=== PATIENT | female | born 1945 | race African-American/Black ===

== ENCOUNTER 2021-06-26 17:11 | Inpatient (IN) | payer OTHER ==
[~2021-06-26] VITALS: Ht 165.1 cm; Wt 114.0 kg
[~2021-06-26 17:11] MED LIST: ASPI-556 PO; CELE200 PO; DICY10 PO; DONE5TAB5 PO; GABA-1181 PO; HYDR25TA2 PO; INSLAN SQ; LISI-894 PO; OMEP20 PO; ONDA-104 PO; PRAV40TA4 PO; RANI150T7 PO; TRAZ-257 PO
[2021-06-26] MEDS ORDERED: IOHEXOL 350 MG/ML 100 ML VIAL ONE (17:30)
[2021-06-26] MEDS ORDERED: SODIUM CHLORIDE 0.9% 100 ML ONE (17:30)
[2021-06-26 17:44] LABS: BASOPHILS % (AUTO) 0.6 % (0.0-2.0); EOSINOPHILS % (AUTO) 6.3 % (1.0-6.0); HEMATOCRIT 39.6 % (36-46); HEMOGLOBIN 12.9 g/dL (12.0-16.0); LYMPHOCYTES # (AUTO) 2.5 K/uL (1.0-4.8); LYMPHOCYTES % (AUTO) 33.1 % (22.0-44.0); MEAN CORPUSCULAR HEMOGLOBIN 28.1 pg (26.0-34.0); MEAN CORPUSCULAR HGB CONC 32.6 G/dL (31.0-37.0); MEAN CORPUSCULAR VOLUME 86 fL (80-100); MONOCYTES # (AUTO) 0.5 K/uL (0.1-1.0); MONOCYTES % (AUTO) 7.4 % (2.0-9.0); NEUTROPHILS # (AUTO) 3.9 K/uL (1.8-7.7); NEUTROPHILS % (AUTO) 52.6 % (40.0-70.0); PLATELET COUNT (AUTO) 228 K/uL (150-450); RED CELL DISTRIBUTION WIDTH 15.8 % (11.5-14.5)
[2021-06-26 17:52] LABS: ANION GAP 5 mmol/L (8-16); CALCIUM, TOTAL 9.3 mg/dL (8.8-10.5); CARBON DIOXIDE 31 mmol/L (22-29); CHLORIDE 102 mmol/L (98-107); GLUCOSE,RANDOM 159 mg/dL (70-110); POTASSIUM 4.2 mmol/L (3.5-5.1); SODIUM SERUM 138 mmol/L (136-145); UREA NITROGEN, BLOOD 11 mg/dL (7-18)
[2021-06-26 17:56] LABS: PROTHROMBIN TIME 10.5 SEC (9.4-11.6)
[2021-06-26 17:57] LABS: ALANINE AMINOTRANSFERASE 24 U/L (12-78); ALBUMIN 3.2 g/dL (3.4-5.0); ALKALINE PHOSPHATASE 175 U/L (46-116); ASPARTATE AMINOTRANSFERASE 23 U/L (15-37); BILIRUBIN,TOTAL 0.4 mg/dL (0.1-1.0)
[2021-06-26 17:59] LABS: GLOMERULAR FILTR. RATE CALC > 60 mL/min (>60)
[2021-06-26 18:59] LABS: COVID AG,FIA SOURCE NASAL SWAB
[2021-06-26 19:08] LABS: APPEARANCE,URINE CLEAR (CLEAR); BILIRUBIN,URINE NEGATIVE (NEGATIVE); GLUCOSE, URINE (UA) NEGATIVE (NEGATIVE); KETONES,URINE NEGATIVE (NEGATIVE); LEUKOCYTE ESTERASE ,URINE NEGATIVE (NEGATIVE); NITRATE,URINE NEGATIVE (NEGATIVE); OCCULT BLOOD,URINE NEGATIVE (NEGATIVE); PH,URINE 6.5 (5.0-8.0); PROTEIN,URINE NEGATIVE (NEGATIVE); UROBILINOGEN,URINE 0.2 mg/dL (<=1.0)
[2021-06-26 19:14] LABS: AMPHET/METH SCREEN,URINE NEGATIVE (NEGATIVE); BARBITURATE SCREEN, URINE NEGATIVE (NEGATIVE); BENZODIAZEPINES SCREEN,URINE NEGATIVE (NEGATIVE); CANNABINOID SCREEN,URINE POSITIVE (NEGATIVE); COCAINE SCREEN,URINE NEGATIVE (NEGATIVE); METHADONE SCREEN, URINE NEGATIVE (NEGATIVE); OPIATE SCREEN,URINE NEGATIVE (NEGATIVE); PHENCYCLIDINE SCREEN,URINE NEGATIVE (NEGATIVE)
[2021-06-26 19:19] LABS: BACTERIA,URINE Rare /HPF (None Seen); RBC,URINE 0-2 /HPF (0-2); SQUAMOUS EPITHELIAL CELL,UR Few /LPF (None Seen); WBC,URINE 0-2 /HPF (0-5)
[2021-06-26] MEDS ORDERED: ALTEPLASE 9 MG in WATER FOR INJECTION,STERILE 9 ML IV ONE (19:30)
[2021-06-26] MEDS ORDERED: ALTEPLASE 81 MG in WATER FOR INJECTION,STERILE 81 ML IV ONE (19:30)
[2021-06-26] MEDS ORDERED: ONDANSETRON HCL 4 MG/2 ML VIAL IVP PRN (20:30)
[2021-06-26] MEDS ORDERED: ACETAMINOPHEN 325 MG TABLET PO PRN (20:30)
[2021-06-26] MEDS ORDERED: ACETAMINOPHEN 650 MG/ISO-OSM 65 ML IV ONE (23:15)
[2021-06-27] VITALS (12 sets, daily range): BP systolic 106–163; BP diastolic 41–76
[2021-06-27] MEDS ORDERED: DEXTROSE 50%-WATER 25 GM/50 ML SYRINGE IVP PRN (07:45)
[2021-06-27] MEDS ORDERED: INSULIN LISPRO 100 UNITS/ML SQ PRN (07:45)
[2021-06-27] MEDS ORDERED: GADOTERATE MEGLUMINE 10 MMOL/20 ML VIAL IVP ONE ×2 (08:20)
[2021-06-27 13:16] LABS: GLUCOSE,POINT OF CARE 142 MG/DL (70-110)
[2021-06-27 18:06] LABS: GLUCOSE,POINT OF CARE 161 MG/DL (70-110)
[2021-06-27] MEDS ORDERED: INSULIN GLARGINE,HUM.REC.ANLOG 100 UNITS/ML SQ SCH (21:00)
[2021-06-27 21:46] LABS: GLUCOSE,POINT OF CARE 154 MG/DL (70-110)
[2021-06-28 03:21] LABS: GLUCOSE,POINT OF CARE 131 MG/DL (70-110)
[2021-06-28 08:47] VITALS: BP 104/56
[2021-06-28 11:53] VITALS: BP 143/60
== END 2021-06-28 13:45 | disposition home or self-care (01) | DRG 62 ==
LOC: EMS 17:12 → ICUN 20:23 → 5S 06-28 05:00
PROVIDERS: ADMIT Internal Medicine; ATTEND Internal Medicine
DX: I63.9 Cerebral infarction, unspecified (principal); Z68.41 Body mass index [BMI] 40.0-44.9, adult; G81.91 Hemiplegia, unspecified affecting right dominant side; R47.01 Aphasia; R29.721 NIHSS score 21; I10 Essential (primary) hypertension; E78.5 Hyperlipidemia, unspecified; E11.9 Type 2 diabetes mellitus without complications; E66.01 Morbid (severe) obesity due to excess calories; I44.0 Atrioventricular block, first degree; R53.1 Weakness; Z20.822 Contact with and (suspected) exposure to COVID-19; R77.8 Other specified abnormalities of plasma proteins; Z79.4 Long term (current) use of insulin; Z88.0 Allergy status to penicillin; Z88.5 Allergy status to narcotic agent
CPT/HCPCS: 51702; 70450; 70496; 70498; 70553; 71045; 80053; 81001; 82962; 84484; 85025; 85610; 85730; 86850; 86900; 86901; 92610; 93005; 93306; 97116; 97162; 97166; 97535; 99291; G0378; J0131; J1815; J2405; J2997; J7050; Q9967; 36415-L1; 36415-TC